=== PATIENT | male | born 1950 | race Caucasian/White ===

== ENCOUNTER 2020-10-24 19:24 | Emergency (ER) | payer MEDICARE, SELFPAY ==
[2020-10-24] VITALS (9 sets, daily range): BP systolic 73–135; BP diastolic 40–63; PULSE 88–108; RESP 24–28; TEMP 37.1; O2SAT 90–98; BMI 31.1
--- NOTE | ~2020-10-24 | CT_ITS ---
EXAMINATION: CT BRAIN AND CT CERVICAL SPINE WITHOUT CONTRAST. CLINICAL INFORMATION: EtOH and fall. COMPARISON: None TECHNIQUE: 5 mm thin axial and reformatted 2 mm thin sagittal and coronal images of brain were obtained without contrast. Subsequently axial 3 mm thin and reformatted 2 mm thin sagittal and coronal images of cervical spine were obtained. DLP 1433. FINDINGS: Brain: There is no acute intra-axial, extra-axial bleed, masses, collection or midline shift. There is no acute infarction in evolution. 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 The lateral ventricles are symmetrical in size but enlarged and so are the cortical sulci. There is atherosclerotic calcification of bilateral vertebral and carotid arteries. Bone windows reveal well-aerated paranasal sinuses. Mild mucoperiosteal thickening left maxillary sinus is noted. There is no calvarial fracture or abnormality. The soft tissues are normal. Cervical spine: There is mild straightening of cervical lordosis. The vertebral heights are normal. There is grade 1 anterolisthesis C2 over C3 and C3 over C5 C4. There is loss of C4-C5, C5-C6 and C6-C7 disc heights with ventral and posterior spondylosis. The craniovertebral junction and the C1-C2 alignment is normal. There is moderate significant right cc 3-4 facet arthropathy. Mild facet arthropathy seen of the rest of the disc levels. No visible acute fracture, dislocation or subluxation seen. The prevertebral and paravertebral soft tissues are normal. The central trachea and the bronchi is widely patent. The lung apices are clear. CT/CT cervical spine wo con IMPRESSION: No acute intracranial process seen. 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 [place]-rump Chronic left maxillary sinus inflammatory changes. Mild straightening of cervical lordosis. No visible acute fracture or dislocation. Mild ventral spondylosis C4-C5, C5-C6 and C6-C7 disc levels. Degenerative disc changes C4-C5 and C5-C6 disc level.
--- NOTE | ~2020-10-24 | CT_ITS ---
EXAMINATION: CT ABDOMEN AND PELVIS WITHOUT CONTRAST CLINICAL INFORMATION: Abdominal distention COMPARISON: None TECHNIQUE: Multidetector volumetric imaging was performed from the superior aspect of the liver through the pubic symphysis. Sagittal and coronal reformatted images were obtained on the technologist's workstation. This CT examination was performed using dose optimization techniques as appropriate, variously including the following: *Automated exposure control *Adjustment of mA and/or kV according to patient size (this includes techniques or standardized protocols for targeted exams where dose is matched to indication/reason for exam; i.e. extremities or head) *Use of iterative reconstruction technique DLP: 699 mGy-cm FINDINGS: LUNG BASES: Minimal bibasilar atelectasis. Coronary artery calcifications are present. LIVER, GALLBLADDER, AND BILIARY TREE: The liver is enlarged measuring 22 cm CC dimension. Low attenuation of the liver with normal contour. No focal hepatic lesion. No biliary ductal dilatation. The gallbladder is unremarkable with no evidence of radiopaque gallstones, gallbladder wall thickening, or obvious pericholecystic inflammatory changes. PANCREAS: Mild pancreatic atrophy with no focal abnormality. SPLEEN: Unremarkable. ADRENAL GLANDS: Unremarkable. KIDNEYS AND URETERS: The left kidney is atrophic. Normal size right kidney. No hydronephrosis. There is a prominent calculus in the renal pelvis. This measures 1.4 x 0.8 cm, 11 cm from the posterior axillary line. This measures 1026 Hounsfield units. Scattered additional calcifications are noted, which appear vascular. Mild stranding of the fat surrounding the right renal pelvis. The ureter is normal in caliber. BLADDER: Unremarkable. GASTROINTESTINAL TRACT: Wall thickening of the lower esophagus. The stomach is unremarkable. The small bowel is normal in caliber. No obstruction. Scattered colonic diverticulosis. Much of the colon is decompressed, but there does appear to be wall thickening involving the right hemicolon. Mild stranding in the fat throughout the mesentery. No free fluid. No free air. ABDOMINAL WALL: Fat-containing right inguinal hernia. LYMPH NODES: Normal. VASCULAR: There is an aortobiiliac stent graft in place. Normal caliber aorta. Moderate atherosclerotic calcification. PELVIC VISCERA: The prostate and seminal vesicles are unremarkable. OSSEOUS STRUCTURES: No acute or suspicious osseous abnormality. Degenerative changes of the spine. Degenerative changes of the hips. CT/CT abdomen pelvis wo con IMPRESSION: Wall thickening of the right hemicolon. This is suggestive of colitis. No bowel obstruction. There is also a lower esophageal wall thickening. Correlate for esophagitis. Hepatomegaly with hepatic steatosis. Although there is no right hydronephrosis, there is a prominent calculus in the renal pelvis with mild adjacent stranding. Cannot exclude infectious process. Atrophic left kidney.
--- NOTE | ~2020-10-24 | XR_ITS ---
EXAMINATION: XR CHEST CLINICAL INFORMATION: Hypotension COMPARISON: None TECHNIQUE: Frontal view of the chest was obtained. FINDINGS: Cardiac leads overlie the chest. The lungs are well expanded. There is no focal consolidation, edema, or effusion. No pneumothorax. The cardiomediastinal silhouette is within normal limits of size with a calcified aorta. No acute osseous abnormality. Degenerative changes are seen at both shoulders with narrowing of the joint space and osteophyte formation. XR/XR chest 1V IMPRESSION: No acute pulmonary finding.
--- NOTE | ~2020-10-24 | CT_ITS ---
EXAMINATION: CT BRAIN AND CT CERVICAL SPINE WITHOUT CONTRAST. CLINICAL INFORMATION: EtOH and fall. COMPARISON: None TECHNIQUE: 5 mm thin axial and reformatted 2 mm thin sagittal and coronal images of brain were obtained without contrast. Subsequently axial 3 mm thin and reformatted 2 mm thin sagittal and coronal images of cervical spine were obtained. DLP 1433. FINDINGS: Brain: There is no acute intra-axial, extra-axial bleed, masses, collection or midline shift. There is no acute infarction in evolution. 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 The lateral ventricles are symmetrical in size but enlarged and so are the cortical sulci. There is atherosclerotic calcification of bilateral vertebral and carotid arteries. Bone windows reveal well-aerated paranasal sinuses. Mild mucoperiosteal thickening left maxillary sinus is noted. There is no calvarial fracture or abnormality. The soft tissues are normal. Cervical spine: There is mild straightening of cervical lordosis. The vertebral heights are normal. There is grade 1 anterolisthesis C2 over C3 and C3 over C5 C4. There is loss of C4-C5, C5-C6 and C6-C7 disc heights with ventral and posterior spondylosis. The craniovertebral junction and the C1-C2 alignment is normal. There is moderate significant right cc 3-4 facet arthropathy. Mild facet arthropathy seen of the rest of the disc levels. No visible acute fracture, dislocation or subluxation seen. The prevertebral and paravertebral soft tissues are normal. The central trachea and the bronchi is widely patent. The lung apices are clear. CT/CT head/brain wo con IMPRESSION: No acute intracranial process seen. 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 [place]-rump Chronic left maxillary sinus inflammatory changes. Mild straightening of cervical lordosis. No visible acute fracture or dislocation. Mild ventral spondylosis C4-C5, C5-C6 and C6-C7 disc levels. Degenerative disc changes C4-C5 and C5-C6 disc level.
--- NOTE | 2020-10-24 19:54 | ED.GENADULT ---
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 Patient was found to be hypotensive for EMS 80s over 50s was given IV fluids and transferred the emergency room. He is alert and oriented does have slight tremors to the hand denies any pain or discomfort. Upon arrival he does have liquid stool that is dark/greenish appearing. Onset (ago): day(s) Radiation: non-radiation Severity: severe Associated symptoms: denies other symptoms Treatments prior to arrival: other (IV fluids by EMS) Related Data Home Medications Medication Instructions Recorded Confirmed allopurinol 1 tab PO DAILY 10/24/20 10/24/20 amlodipine 1 tab PO DAILY 10/24/20 10/24/20 aspirin 81 mg PO DAILY 10/24/20 10/24/20 atorvastatin 1 tab PO DAILY 10/24/20 10/24/20 cyanocobalamin (vitamin B-12) 1,000 mcg PO DAILY 10/24/20 10/24/20 [Vitamin B-12] folic acid 1 mg PO DAILY 10/24/20 10/24/20 magnesium citrate 125 mg PO DAILY 10/24/20 10/24/20 metoprolol succinate 1 tab PO DAILY 10/24/20 10/24/20 Allergies Allergy/AdvReac Type Severity Reaction Status Date / Time No Known Allergies Allergy Verified 10/24/20 19:54 Review of Systems Review of Systems: Yes Unobtainable due to mental condition PMFSH Past Medical History PMFSH Narrative: History reported per he normally goes to [facility] And has never been to this facility before She reports he has a history of abdominal gastric perforation in the past requiring repair Abdominal aortic aneurysm which was repaired Hypertension Hypercholesteremia Gout Left knee replacement Nephrectomy left And his medication list that he has with him he is on metoprolol B12 Ill-appearing on Aspirin Folic acid Atorvastatin Amlodipine Magnesium Social History Social History Alcohol intake: current Alcohol intake frequency: other Alcohol type: hard liquor Patient Tobacco Use Status: Tobacco use Unknown Use of substances other than those prescribed or required for medical reasons: No Advance Directives: No Physical Exam Vital Signs: Vital Signs: Last Vital Signs Temp 100.4 F 10/25/20 01:10 Pulse 91 10/25/20 01:53 Resp 28 H 10/25/20 01:53 BP 153/69 H 10/25/20 01:53 Pulse Ox 94 10/25/20 01:53 Body Mass Index 31.1 Reviewed Const: Other: Slight tremor when he raises his hands General: ill appearing and poor hygiene Nutritional Appearance: obese Orientation/consciousness: patient oriented x3 Limitations: language barrier HENMT: Head: Yes normal to inspection Ears: hearing grossly normal bilaterally Eyes: General: appearance normal, both eyes and all related structures Visual [place]: normal visual dallas by confrontation Neck: Neck: Yes normal visual inspection, No positive Brudzinski's sign, No positive Kernig's sign and No tender Thyroid: Thyroid normal Chest: Other: Surgical pj to the chest Chest palpation & inspection: normal inspection of the chest Resp: Effort & Inspection: normal respiratory effort Auscultation: clear to auscultation bilaterally Cardio: Jugular venous distension: no JVD Rate: Other (AFib) Rhythm: regular rhythm GI: Inspection: Yes distended Palpation (GI): No Rebound tenderness present Percussion: Yes normal to percussion Auscultation: normal bowel sounds : General: Yes no CVA tenderness Back/Spine/Pelvis: Back: no CVA tenderness Skin: Other: Healed abrasion pj on the right forearm General skin exam: no rashes or lesions noted Neuro: General: patient oriented x3 Extrem: General: Yes normal to inspection Course Course Course Narrative: Given 2 mg IV Ativan on arrival for his withdrawal subsequently planned for phenobarb protocol for alcohol withdrawal labs, imaging, Rae catheter for fluid management appears to be very dry clinically. Will monitor closely hypertensive has 2 IV lines and fluids infusing. Reevaluation(s) Reevaluation #1: 1953 In review 70-year-old male with past medical history that is significant hypertension, hypercholesteremia, hypomagnesia, gout, gastric ulcer perforation status post repair, abdominal aortic aneurysm status post repair, left knee replacement who is a lifelong alcoholic has been drinking more heavily according to his over the last several days and stop drinking today which he will occasionally do and has been experiencing withdrawal symptoms of tremors and now having some diarrhea which is usual for him. He typically goes to [facility] and this is 1st time here. He does have some limited barriers his Hayley is at bedside to assist with history. Upon arrival hypertensive appears very dehydrated does have diarrhea. EKG on arrival AFib rate in the 80s. Again history is limited given that he has never been here before. He has IV fluids infusing from EMS he is getting a 2nd line now will give additional IV fluids and workup initiated. Reevaluation #2: BP slightly improved after IV fluids Chest x-ray without acute findings CT of the abdomen: Wall thickening of the right hemicolon. This is suggestive of colitis. No bowel obstruction. There is also a lower esophageal wall thickening. Correlate for esophagitis. Hepatomegaly with hepatic steatosis. Although there is no right hydronephrosis, there is a prominent calculus in the renal pelvis with mild adjacent stranding. Cannot exclude infectious process. Atrophic left kidney. Additional fluids ordered, IV Ativan, Rae catheter for fluid management. Labs still processing. Reevaluation #3: 2134 Starting to result this time CBC essentially no change from previous platelet count previously 78 today's count still pending. Comprehensive metabolic profile along with other electrolytes now resulting Overt electrolyte derangement consistent with alcoholic ketoacidosis Sodium 132, potassium 5, elevated creatinine/BUN with lactic acid of 14.2, magnesium of 1.4, CK of 1008, troponin 98.6 Findings more consistent with alcoholic ketoacidosis and demand. I do not suspect infection to be the cause of the lactic acidosis. I will add on CRP and procalcitonin. Consultations Consultation #1: Had extensive conversation with Hayley at bedside she was a physical therapist at [facility] and states to me that patient went to frequently alcohol withdrawals with similar presentation before. Records requested. States that also recently she was diagnosed of breast cancer she had bilateral mastectomies and has been more depressed and has been drinking more due to this. I did discuss with her advanced directives and close status states that she knows he would not want heroic measures but does not have any directives on record. At this point full code and she will have discussion with her daughter. 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 White declined admission here. Meets ICU level care recommendation for transfer to appropriate center with ICU level care. Also case discussed with the GI doctor son made aware of patient will follow if admitted here aware PPI given. Consultation #3: Page placed to [facility] transfer line for transfer to ICU case discussed with transfer line will call back Additional Consultation(s): Case discussed with transfer line as well as ICU attending [place] [facility] [place] this point would not need ICU level care can be admitted to Internal care and if needed ICU can consult. Aware [facility] have ICU capacity here and hospitalist has declined at this facility will page to hospitalist services 0210 Call back from transfer line case discussed with hospitalist Dr. Mayen Who accepted the patient to the service transfer line will call back with bed assignment in the intermediate care unit. Patient remained stable receiving IV fluids. Plan reviewed agreeable. Medical Decision Making Lab Data Lab results reviewed: Yes I reviewed the patient's lab results. Result diagrams: 10/24/20 21:48 10/25/20 00:20 Labs: Lab Results 10/24/20 10/24/20 10/24/20 Range/Units 20:42 20:42 20:42 WBC 8.5 (4.8-10.8) X10*3/uL RBC 3.21 L (4.60-5.80) X10*6/uL Hgb 11.3 L (14.0-18.0) g/dl Hct 37.3 L (42-52) % MCV 116.2 H (80-98) fL MCH 35.2 H (27.0-33.0) pg MCHC 30.3 L (31.0-36.0) g/dl RDW 14.8 (11.0-16.0) % Plt Count 78 L (160-400) X10*3/uL MPV 10.1 (9.4-12.4) fL Immature Gran % (Auto) 0.6 H (0.0-0.4) % Neut % (Auto) 94.7 H (45-73) % Lymph % (Auto) 2.7 L (20-40) % [place] % (Auto) 1.8 L (2-11) % Eos % (Auto) 0.1 (0-4) % Baso % (Auto) 0.1 (0-2) % Lymph # (Auto) 0.2 L (1.2-4.9) X10*3/uL [place] # (Auto) 0.2 (0.1-1.2) X10*3/uL Eos # (Auto) 0.0 (0.0-0.4) X10*3/uL Baso # (Auto) 0.0 (0.0-0.2) X10*3/uL Abs Immat Gran (auto) 0.05 H (0.00-0.03) X10*3/uL Absolute Neuts (auto) 8.0 (2.0-8.3) X10*3/uL Absolute Nucleated RBC 0.110 H (0.0-0.012) X10*3/uL Nucleated RBC % (auto) 1.3 H (0.0-0.2) /100WBC Smear Tech's Comments VERIFIED PT 12.9 (10.8-13.0) SEC INR 1.1 (0.9-1.1) APTT 28.8 (24.1-38.0) SEC VBG pH (7.32-7.43) VBG pCO2 mmHg VBG pO2 mmHg VBG HCO3 (22-26) mmol/L VBG O2 Saturation % VBG Base Excess mmol/L Sodium 132 L (135-145) mmol/L Potassium 5.0 (3.3-5.1) mmol/L Chloride 93 L (96-108) mmol/L Carbon Dioxide 9 L* (22-29) mmol/L Anion Gap 35 H (12-20) BUN 24 H (9-16) mg/dL Creatinine 3.10 H (0.5-1.4) mg/dL Estim Creat Clear Calc 25.7 Estimated GFR 20 Random Glucose 120 H (60-115) mg/dL Lactic Acid (0.5-2.0) mmol/L Lactic Acid Fup @ 2Hr (0.5-2.0) mmol/L Calcium 7.2 L (8.4-10.2) mg/dL Magnesium (1.6-2.6) mg/dL Total Bilirubin 5.1 H (0.0-1.0) mg/dL AST 799 H (5-37) U/L ALT 156 H (0-40) U/L Alkaline Phosphatase 211 H (39-117) U/L Total Creatine Kinase (38-174) U/L Troponin I High Sens (<3.5-35.0) ng/L C-Reactive Protein 3.90 H (< or = 0.50) mg/dL Total Protein 5.5 L (6.5-8.0) g/dL Albumin 3.5 (3.5-5.0) g/dL Lipase (8-78) U/L Procalcitonin ng/mL Urine Color Urine Appearance Urine pH (5.0-8.0) Ur Specific Cuthbert (1.005-1.025) Urine Protein (NEG-TRACE) MG/DL Urine Glucose (UA) (NEG) MG/DL Urine Ketones (NEG) MG/DL Urine Blood (NEG) Urine Nitrite (NEG) Ur Leukocyte Esterase (NEG) Urine RBC (0) /HPF Urine WBC (0-4) /HPF Ur Squamous Epith Cells /LPF Ur Renal Epithelial Cell /LPF Calcium Oxalate Crystal /LPF Amorphous Sediment /LPF Urine Bacteria /LPF Hyaline Casts /LPF Granular Casts /LPF Stool Occult Blood (NEGATIVE) Urine Opiates Screen (Not Detect) Ur Barbiturates Screen (Not Detect) Ur Phencyclidine Scrn (Not Detect) Ur Amphetamines Screen (Not Detect) U Benzodiazepines Scrn (Not Detect) Urine Cocaine Screen (Not Detect) U Marijuana (THC) Screen (Not Detect) Ethyl Alcohol mg/dL Coronavirus (PCR) (Negative) Influenza Type A (PCR) (Negative) Influenza Type B (PCR) (Negative) RSV RNA Qual (PCR) (Negative) Blood Type Antibody Screen 10/24/20 10/24/20 10/24/20 Range/Units 20:42 20:42 20:42 WBC (4.8-10.8) X10*3/uL RBC (4.60-5.80) X10*6/uL Hgb (14.0-18.0) g/dl Hct (42-52) % MCV (80-98) fL MCH (27.0-33.0) pg MCHC (31.0-36.0) g/dl RDW (11.0-16.0) % Plt Count (160-400) X10*3/uL MPV (9.4-12.4) fL Immature Gran % (Auto) (0.0-0.4) % Neut % (Auto) (45-73) % Lymph % (Auto) (20-40) % [place] % (Auto) (2-11) % Eos % (Auto) (0-4) % Baso % (Auto) (0-2) % Lymph # (Auto) (1.2-4.9) X10*3/uL [place] # (Auto) (0.1-1.2) X10*3/uL Eos # (Auto) (0.0-0.4) X10*3/uL Baso # (Auto) (0.0-0.2) X10*3/uL Abs Immat Gran (auto) (0.00-0.03) X10*3/uL Absolute Neuts (auto) (2.0-8.3) X10*3/uL Absolute Nucleated RBC (0.0-0.012) X10*3/uL Nucleated RBC % (auto) (0.0-0.2) /100WBC Smear Tech's Comments PT (10.8-13.0) SEC INR (0.9-1.1) APTT (24.1-38.0) SEC VBG pH (7.32-7.43) VBG pCO2 mmHg VBG pO2 mmHg VBG HCO3 (22-26) mmol/L VBG O2 Saturation % VBG Base Excess mmol/L Sodium (135-145) mmol/L Potassium (3.3-5.1) mmol/L Chloride (96-108) mmol/L Carbon Dioxide (22-29) mmol/L Anion Gap (12-20) BUN (9-16) mg/dL Creatinine (0.5-1.4) mg/dL Estim Creat Clear Calc Estimated GFR Random Glucose (60-115) mg/dL Lactic Acid 14.2 H* (0.5-2.0) mmol/L Lactic Acid Fup @ 2Hr (0.5-2.0) mmol/L Calcium (8.4-10.2) mg/dL Magnesium 1.4 L* (1.6-2.6) mg/dL Total Bilirubin (0.0-1.0) mg/dL AST (5-37) U/L ALT (0-40) U/L Alkaline Phosphatase (39-117) U/L Total Creatine Kinase 1008 H (38-174) U/L Troponin I High Sens 98.6 H* (<3.5-35.0) ng/L C-Reactive Protein (< or = 0.50) mg/dL Total Protein (6.5-8.0) g/dL Albumin (3.5-5.0) g/dL Lipase (8-78) U/L Procalcitonin ng/mL Urine Color Urine Appearance Urine pH (5.0-8.0) Ur Specific C[place]bert (1.005-1.025) Urine Protein (NEG-TRACE) MG/DL Urine Glucose (UA) (NEG) MG/DL Urine Ketones (NEG) MG/DL Urine Blood (NEG) Urine Nitrite (NEG) Ur Leukocyte Esterase (NEG) Urine RBC (0) /HPF Urine WBC (0-4) /HPF Ur Squamous Epith Cells /LPF Ur Renal Epithelial Cell /LPF Calcium Oxalate Crystal /LPF Amorphous Sediment /LPF Urine Bacteria /LPF Hyaline Casts /LPF Granular Casts /LPF Stool Occult Blood (NEGATIVE) Urine Opiates Screen (Not Detect) Ur Barbiturates Screen (Not Detect) Ur Phencyclidine Scrn (Not Detect) Ur Amphetamines Screen (Not Detect) U Benzodiazepines Scrn (Not Detect) Urine Cocaine Screen (Not Detect) U Marijuana (THC) Screen (Not Detect) Ethyl Alcohol mg/dL Coronavirus (PCR) (Negative) Influenza Type A (PCR) (Negative) Influenza Type B (PCR) (Negative) RSV RNA Qual (PCR) (Negative) Blood Type Antibody Screen 10/24/20 10/24/20 10/24/20 Range/Units 20:42 20:42 20:42 WBC (4.8-10.8) X10*3/uL RBC (4.60-5.80) X10*6/uL Hgb (14.0-18.0) g/dl Hct (42-52) % MCV (80-98) fL MCH (27.0-33.0) pg MCHC (31.0-36.0) g/dl RDW (11.0-16.0) % Plt Count (160-400) X10*3/uL MPV (9.4-12.4) fL Immature Gran % (Auto) (0.0-0.4) % Neut % (Auto) (45-73) % Lymph % (Auto) (20-40) % [place] % (Auto) (2-11) % Eos % (Auto) (0-4) % Baso % (Auto) (0-2) % Lymph # (Auto) (1.2-4.9) X10*3/uL [place] # (Auto) (0.1-1.2) X10*3/uL Eos # (Auto) (0.0-0.4) X10*3/uL Baso # (Auto) (0.0-0.2) X10*3/uL Abs Immat Gran (auto) (0.00-0.03) X10*3/uL Absolute Neuts (auto) (2.0-8.3) X10*3/uL Absolute Nucleated RBC (0.0-0.012) X10*3/uL Nucleated RBC % (auto) (0.0-0.2) /100WBC Smear Tech's Comments PT (10.8-13.0) SEC INR (0.9-1.1) APTT (24.1-38.0) SEC VBG pH (7.32-7.43) VBG pCO2 mmHg VBG pO2 mmHg VBG HCO3 (22-26) mmol/L VBG O2 Saturation % VBG Base Excess mmol/L Sodium (135-145) mmol/L Potassium (3.3-5.1) mmol/L Chloride (96-108) mmol/L Carbon Dioxide (22-29) mmol/L Anion Gap (12-20) BUN (9-16) mg/dL Creatinine (0.5-1.4) mg/dL Estim Creat Clear Calc Estimated GFR Random Glucose (60-115) mg/dL Lactic Acid (0.5-2.0) mmol/L Lactic Acid Fup @ 2Hr (0.5-2.0) mmol/L Calcium (8.4-10.2) mg/dL Magnesium (1.6-2.6) mg/dL Total Bilirubin (0.0-1.0) mg/dL AST (5-37) U/L ALT (0-40) U/L Alkaline Phosphatase (39-117) U/L Total Creatine Kinase (38-174) U/L Troponin I High Sens (<3.5-35.0) ng/L C-Reactive Protein (< or = 0.50) mg/dL Total Protein (6.5-8.0) g/dL Albumin (3.5-5.0) g/dL Lipase (8-78) U/L Procalcitonin 1.03 ng/mL Urine Color Urine Appearance Urine pH (5.0-8.0) Ur Specific [place] (1.005-1.025) Urine Protein (NEG-TRACE) MG/DL Urine Glucose (UA) (NEG) MG/DL Urine Ketones (NEG) MG/DL Urine Blood (NEG) Urine Nitrite (NEG) Ur Leukocyte Esterase (NEG) Urine RBC (0) /HPF Urine WBC (0-4) /HPF Ur Squamous Epith Cells /LPF Ur Renal Epithelial Cell /LPF Calcium Oxalate Crystal /LPF Amorphous Sediment /LPF Urine Bacteria /LPF Hyaline Casts /LPF Granular Casts /LPF Stool Occult Blood (NEGATIVE) Urine Opiates Screen (Not Detect) Ur Barbiturates Screen (Not Detect) Ur Phencyclidine Scrn (Not Detect) Ur Amphetamines Screen (Not Detect) U Benzodiazepines Scrn (Not Detect) Urine Cocaine Screen (Not Detect) U Marijuana (THC) Screen (Not Detect) Ethyl Alcohol < 10 mg/dL Coronavirus (PCR) NEGATIVE (Negative) Influenza Type A (PCR) NEGATIVE (Negative) Influenza Type B (PCR) NEGATIVE (Negative) RSV RNA Qual (PCR) NEGATIVE (Negative) Blood Type Antibody Screen 10/24/20 10/24/20 10/24/20 Range/Units 20:46 20:46 21:48 WBC 9.5 (4.8-10.8) X10*3/uL RBC 3.17 L (4.60-5.80) X10*6/uL Hgb 11.0 L (14.0-18.0) g/dl Hct 36.1 L (42-52) % MCV 113.9 H (80-98) fL MCH 34.7 H (27.0-33.0) pg MCHC 30.5 L (31.0-36.0) g/dl RDW 14.8 (11.0-16.0) % Plt Count 57 L D (160-400) X10*3/uL MPV 9.7 (9.4-12.4) fL Immature Gran % (Auto) 0.8 H (0.0-0.4) % Neut % (Auto) 91.7 H (45-73) % Lymph % (Auto) 3.8 L (20-40) % [place] % (Auto) 3.6 (2-11) % Eos % (Auto) 0.0 (0-4) % Baso % (Auto) 0.1 (0-2) % Lymph # (Auto) 0.4 L (1.2-4.9) X10*3/uL [place] # (Auto) 0.3 (0.1-1.2) X10*3/uL Eos # (Auto) 0.0 (0.0-0.4) X10*3/uL Baso # (Auto) 0.0 (0.0-0.2) X10*3/uL Abs Immat Gran (auto) 0.08 H (0.00-0.03) X10*3/uL Absolute Neuts (auto) 8.7 H (2.0-8.3) X10*3/uL Absolute Nucleated RBC 0.110 H (0.0-0.012) X10*3/uL Nucleated RBC % (auto) 1.2 H (0.0-0.2) /100WBC Smear Tech's Comments PT (10.8-13.0) SEC INR (0.9-1.1) APTT (24.1-38.0) SEC VBG pH (7.32-7.43) VBG pCO2 mmHg VBG pO2 mmHg VBG HCO3 (22-26) mmol/L VBG O2 Saturation % VBG Base Excess mmol/L Sodium (135-145) mmol/L Potassium (3.3-5.1) mmol/L Chloride (96-108) mmol/L Carbon Dioxide (22-29) mmol/L Anion Gap (12-20) BUN (9-16) mg/dL Creatinine (0.5-1.4) mg/dL Estim Creat Clear Calc Estimated GFR Random Glucose (60-115) mg/dL Lactic Acid (0.5-2.0) mmol/L Lactic Acid Fup @ 2Hr (0.5-2.0) mmol/L Calcium (8.4-10.2) mg/dL Magnesium (1.6-2.6) mg/dL Total Bilirubin (0.0-1.0) mg/dL AST (5-37) U/L ALT (0-40) U/L Alkaline Phosphatase (39-117) U/L Total Creatine Kinase (38-174) U/L Troponin I High Sens (<3.5-35.0) ng/L C-Reactive Protein (< or = 0.50) mg/dL Total Protein (6.5-8.0) g/dL Albumin (3.5-5.0) g/dL Lipase (8-78) U/L Procalcitonin ng/mL Urine Color Urine Appearance Urine pH (5.0-8.0) Ur Specific C[place] (1.005-1.025) Urine Protein (NEG-TRACE) MG/DL Urine Glucose (UA) (NEG) MG/DL Urine Ketones (NEG) MG/DL Urine Blood (NEG) Urine Nitrite (NEG) Ur Leukocyte Esterase (NEG) Urine RBC (0) /HPF Urine WBC (0-4) /HPF Ur Squamous Epith Cells /LPF Ur Renal Epithelial Cell /LPF Calcium Oxalate Crystal /LPF Amorphous Sediment /LPF Urine Bacteria /LPF Hyaline Casts /LPF Granular Casts /LPF Stool Occult Blood POSITIVE (NEGATIVE) Urine Opiates Screen (Not Detect) Ur Barbiturates Screen (Not Detect) Ur Phencyclidine Scrn (Not Detect) Ur Amphetamines Screen (Not Detect) U Benzodiazepines Scrn (Not Detect) Urine Cocaine Screen (Not Detect) U Marijuana (THC) Screen (Not Detect) Ethyl Alcohol mg/dL Coronavirus (PCR) (Negative) Influenza Type A (PCR) (Negative) Influenza Type B (PCR) (Negative) RSV RNA Qual (PCR) (Negative) Blood Type B Positive Antibody Screen NEGATIVE 10/24/20 10/25/20 10/25/20 Range/Units 22:31 00:20 00:20 WBC (4.8-10.8) X10*3/uL RBC (4.60-5.80) X10*6/uL Hgb (14.0-18.0) g/dl Hct (42-52) % MCV (80-98) fL MCH (27.0-33.0) pg MCHC (31.0-36.0) g/dl RDW (11.0-16.0) % Plt Count (160-400) X10*3/uL MPV (9.4-12.4) fL Immature Gran % (Auto) (0.0-0.4) % Neut % (Auto) (45-73) % Lymph % (Auto) (20-40) % [place] % (Auto) (2-11) % Eos % (Auto) (0-4) % Baso % (Auto) (0-2) % Lymph # (Auto) (1.2-4.9) X10*3/uL [place] # (Auto) (0.1-1.2) X10*3/uL Eos # (Auto) (0.0-0.4) X10*3/uL Baso # (Auto) (0.0-0.2) X10*3/uL Abs Immat Gran (auto) (0.00-0.03) X10*3/uL Absolute Neuts (auto) (2.0-8.3) X10*3/uL Absolute Nucleated RBC (0.0-0.012) X10*3/uL Nucleated RBC % (auto) (0.0-0.2) /100WBC Smear Tech's Comments PT (10.8-13.0) SEC INR (0.9-1.1) APTT (24.1-38.0) SEC VBG pH 7.29 L (7.32-7.43) VBG pCO2 26 mmHg VBG pO2 95 mmHg VBG HCO3 12 L (22-26) mmol/L VBG O2 Saturation 98.0 % VBG Base Excess -12.1 mmol/L Sodium (135-145) mmol/L Potassium (3.3-5.1) mmol/L Chloride (96-108) mmol/L Carbon Dioxide (22-29) mmol/L Anion Gap (12-20) BUN (9-16) mg/dL Creatinine (0.5-1.4) mg/dL Estim Creat Clear Calc Estimated GFR Random Glucose (60-115) mg/dL Lactic Acid (0.5-2.0) mmol/L Lactic Acid Fup @ 2Hr 5.7 H* (0.5-2.0) mmol/L Calcium (8.4-10.2) mg/dL Magnesium (1.6-2.6) mg/dL Total Bilirubin (0.0-1.0) mg/dL AST (5-37) U/L ALT (0-40) U/L Alkaline Phosphatase (39-117) U/L Total Creatine Kinase (38-174) U/L Troponin I High Sens (<3.5-35.0) ng/L C-Reactive Protein (< or = 0.50) mg/dL Total Protein (6.5-8.0) g/dL Albumin (3.5-5.0) g/dL Lipase (8-78) U/L Procalcitonin ng/mL Urine Color DARK YELLOW Urine Appearance CLOUDY Urine pH 5.5 (5.0-8.0) Ur Specific Cuthbert >= 1.030 H (1.005-1.025) Urine Protein 2+ H (NEG-TRACE) MG/DL Urine Glucose (UA) NEG (NEG) MG/DL Urine Ketones 5 (NEG) MG/DL Urine Blood 3+ H (NEG) Urine Nitrite NEG (NEG) Ur Leukocyte Esterase NEG (NEG) Urine RBC 1-4 (0) /HPF Urine WBC 0-2 (0-4) /HPF Ur Squamous Epith Cells 2+ /LPF Ur Renal Epithelial Cell 1+ /LPF Calcium Oxalate Crystal 1+ /LPF Amorphous Sediment 2+ /LPF Urine Bacteria NONE /LPF Hyaline Casts 5-9 /LPF Granular Casts 5-9 /LPF Stool Occult Blood (NEGATIVE) Urine Opiates Screen (Not Detect) Ur Barbiturates Screen (Not Detect) Ur Phencyclidine Scrn (Not Detect) Ur Amphetamines Screen (Not Detect) U Benzodiazepines Scrn (Not Detect) Urine Cocaine Screen (Not Detect) U Marijuana (THC) Screen (Not Detect) Ethyl Alcohol mg/dL Coronavirus (PCR) (Negative) Influenza Type A (PCR) (Negative) Influenza Type B (PCR) (Negative) RSV RNA Qual (PCR) (Negative) Blood Type Antibody Screen 10/25/20 10/25/20 10/25/20 Range/Units 00:20 00:20 00:20 WBC (4.8-10.8) X10*3/uL RBC (4.60-5.80) X10*6/uL Hgb (14.0-18.0) g/dl Hct (42-52) % MCV (80-98) fL MCH (27.0-33.0) pg MCHC (31.0-36.0) g/dl RDW (11.0-16.0) % Plt Count (160-400) X10*3/uL MPV (9.4-12.4) fL Immature Gran % (Auto) (0.0-0.4) % Neut % (Auto) (45-73) % Lymph % (Auto) (20-40) % [place] % (Auto) (2-11) % Eos % (Auto) (0-4) % Baso % (Auto) (0-2) % Lymph # (Auto) (1.2-4.9) X10*3/uL [place] # (Auto) (0.1-1.2) X10*3/uL Eos # (Auto) (0.0-0.4) X10*3/uL Baso # (Auto) (0.0-0.2) X10*3/uL Abs Immat Gran (auto) (0.00-0.03) X10*3/uL Absolute Neuts (auto) (2.0-8.3) X10*3/uL Absolute Nucleated RBC (0.0-0.012) X10*3/uL Nucleated RBC % (auto) (0.0-0.2) /100WBC Smear Tech's Comments PT (10.8-13.0) SEC INR (0.9-1.1) APTT (24.1-38.0) SEC VBG pH (7.32-7.43) VBG pCO2 mmHg VBG pO2 mmHg VBG HCO3 (22-26) mmol/L VBG O2 Saturation % VBG Base Excess mmol/L Sodium 130 L (135-145) mmol/L Potassium 5.2 H (3.3-5.1) mmol/L Chloride 98 (96-108) mmol/L Carbon Dioxide 16 L (22-29) mmol/L Anion Gap 21 H (12-20) BUN 26 H (9-16) mg/dL Creatinine 2.92 H (0.5-1.4) mg/dL Estim Creat Clear Calc 27.3 Estimated GFR 21 Random Glucose 156 H (60-115) mg/dL Lactic Acid (0.5-2.0) mmol/L Lactic Acid Fup @ 2Hr (0.5-2.0) mmol/L Calcium 6.6 L D (8.4-10.2) mg/dL Magnesium (1.6-2.6) mg/dL Total Bilirubin 4.8 H (0.0-1.0) mg/dL AST 644 H (5-37) U/L ALT 141 H (0-40) U/L Alkaline Phosphatase 175 H (39-117) U/L Total Creatine Kinase (38-174) U/L Troponin I High Sens 121.6 H* (<3.5-35.0) ng/L C-Reactive Protein (< or = 0.50) mg/dL Total Protein 5.0 L (6.5-8.0) g/dL Albumin 3.2 L (3.5-5.0) g/dL Lipase 420 H (8-78) U/L Procalcitonin ng/mL Urine Color Urine Appearance Urine pH (5.0-8.0) Ur Specific [place] (1.005-1.025) Urine Protein (NEG-TRACE) MG/DL Urine Glucose (UA) (NEG) MG/DL Urine Ketones (NEG) MG/DL Urine Blood (NEG) Urine Nitrite (NEG) Ur Leukocyte Esterase (NEG) Urine RBC (0) /HPF Urine WBC (0-4) /HPF Ur Squamous Epith Cells /LPF Ur Renal Epithelial Cell /LPF Calcium Oxalate Crystal /LPF Amorphous Sediment /LPF Urine Bacteria /LPF Hyaline Casts /LPF Granular Casts /LPF Stool Occult Blood (NEGATIVE) Urine Opiates Screen Not Detected (Not Detect) Ur Barbiturates Screen Not Detected (Not Detect) Ur Phencyclidine Scrn Not Detected (Not Detect) Ur Amphetamines Screen Not Detected (Not Detect) U Benzodiazepines Scrn Not Detected (Not Detect) Urine Cocaine Screen Not Detected (Not Detect) U Marijuana (THC) Screen Not Detected (Not Detect) Ethyl Alcohol mg/dL Coronavirus (PCR) (Negative) Influenza Type A (PCR) (Negative) Influenza Type B (PCR) (Negative) RSV RNA Qual (PCR) (Negative) Blood Type Antibody Screen Imaging Data Head/cervical spine CT: Radiologist's impression: [address] [id number] Scan ReportSigned Patient: Walker WheelerMR#: [id number]: 1950Acct:[id number]/Sex: 70 / MADM Date: 10/24/20Loc: HO.EDAttending Dr: Ordering Physician: Choco Boles NP Date of Service: 10/24/20 Procedure(s): CT head/brain wo con Accession Number(s): [id number] cc: Choco Boles [employer] COMM[employer]ICATIONS INSTRUCTOR~ EXAMINATION: CT BRAIN AND CT CERVICAL SPINE WITHOUT CONTRAST. CLINICAL INFORMATION: EtOH and fall. COMPARISON: None TECHNIQUE: 5 mm thin axial and reformatted 2 mm thin sagittal and coronal images of brain were obtained without contrast. Subsequently axial 3 mm thin and reformatted 2 mm thin sagittal and coronal images of cervical spine were obtained. DLP 1433. FINDINGS: Brain: There is no acute intra-axial, extra-axial bleed, masses, collection or midline shift. There is no acute infarction in evolution. 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 The lateral ventricles are symmetrical in size but enlarged and so are the cortical sulci. There is atherosclerotic calcification of bilateral vertebral and carotid arteries. Bone windows reveal well-aerated paranasal sinuses. Mild mucoperiosteal thickening left maxillary sinus is noted. There is no calvarial fracture or abnormality. The soft tissues are normal. Cervical spine: There is mild straightening of cervical lordosis. The vertebral heights are normal. There is grade 1 anterolisthesis C2 over C3 and C3 over C5 C4. There is loss of C4-C5, C5-C6 and C6-C7 disc heights with ventral and posterior spondylosis. The craniovertebral junction and the C1-C2 alignment is normal. There is moderate significant right cc 3-4 facet arthropathy. Mild facet arthropathy seen of the rest of the disc levels. No visible acute fracture, dislocation or subluxation seen. The prevertebral and paravertebral soft tissues are normal. The central trachea and the bronchi is widely patent. The lung apices are clear. CT/CT head/brain wo con IMPRESSION: No acute intracranial process seen. 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 [place]ump Chronic left maxillary sinus inflammatory changes. Mild straightening of cervical lordosis. No visible acute fracture or dislocation. Mild ventral spondylosis C4-C5, C5-C6 and C6-C7 disc levels. Degenerative disc changes C4-C5 and C5-C6 disc level. Dictated By:FRANCOIS WALTERS MDSigned By:<Electronically signed by FRANCOIS WALTERS MD in [place]>10/24/202152 DD/ 05TD/TT: Road Passenger Firer: TROY Abdominal/pelvis CT: Radiologist's impression: [address] [id number] Scan ReportSigned Patient: Walker WheelerMR#: [id number]: 1950Acct:[id number]/Sex: 70 / MADM Date: 10/24/20Loc: MEGAN.EDAttending Dr: Ordering Physician: Choco Boles NP Date of Service: 10/24/20 Procedure(s): CT abdomen pelvis wo con Accession Number(s): [id number] cc: Choco Boles NP~ EXAMINATION: CT ABDOMEN AND PELVIS WITHOUT CONTRAST CLINICAL INFORMATION: Abdominal distention COMPARISON: None TECHNIQUE: Multidetector volumetric imaging was performed from the superior aspect of the liver through the pubic symphysis. Sagittal and coronal reformatted images were obtained on the technologist's workstation. This CT examination was performed using dose optimization techniques as appropriate, variously including the following: *Automated exposure control *Adjustment of mA and/or kV according to patient size (this includes techniques or standardized protocols for targeted exams where dose is matched to indication/reason for exam; i.e. extremities or head) *Use of iterative reconstruction technique DLP: 699 mGy-cm FINDINGS: LUNG BASES: Minimal bibasilar atelectasis. Coronary artery calcifications are present. LIVER, GALLBLADDER, AND BILIARY TREE: The liver is enlarged measuring 22 cm CC dimension. Low attenuation of the liver with normal contour. No focal hepatic lesion. No biliary ductal dilatation. The gallbladder is unremarkable with no evidence of radiopaque gallstones, gallbladder wall thickening, or obvious pericholecystic inflammatory changes. PANCREAS: Mild pancreatic atrophy with no focal abnormality. SPLEEN: Unremarkable. ADRENAL GLANDS: Unremarkable. KIDNEYS AND URETERS: The left kidney is atrophic. Normal size right kidney. No hydronephrosis. There is a prominent calculus in the renal pelvis. This measures 1.4 x 0.8 cm, 11 cm from the posterior axillary line. This measures 1026 Hounsfield units. Scattered additional calcifications are noted, which appear vascular. Mild stranding of the fat surrounding the right renal pelvis. The ureter is normal in caliber. BLADDER: Unremarkable. GASTROINTESTINAL TRACT: Wall thickening of the lower esophagus. The stomach is unremarkable. The small bowel is normal in caliber. No obstruction. Scattered colonic diverticulosis. Much of the colon is decompressed, but there does appear to be wall thickening involving the right hemicolon. Mild stranding in the fat throughout the mesentery. No free fluid. No free air. ABDOMINAL WALL: Fat-containing right inguinal hernia. LYMPH NODES: Normal. VASCULAR: There is an aortobiiliac stent graft in place. Normal caliber aorta. Moderate atherosclerotic calcification. PELVIC VISCERA: The prostate and seminal vesicles are unremarkable. OSSEOUS STRUCTURES: No acute or suspicious osseous abnormality. Degenerative changes of the spine. Degenerative changes of the hips. CT/CT abdomen pelvis wo con IMPRESSION: Wall thickening of the right hemicolon. This is suggestive of colitis. No bowel obstruction. There is also a lower esophageal wall thickening. Correlate for esophagitis. Hepatomegaly with hepatic steatosis. Although there is no right hydronephrosis, there is a prominent calculus in the renal pelvis with mild adjacent stranding. Cannot exclude infectious process. Atrophic left kidney. Dictated By:Roosevelt Rodriguez MDSigned By:<Electronically signed by Roosevelt Rodriguez MD in OV>10/24/202041 DD/ 58TD/TT: Road Passenger Firer: MARVIN Chest x-ray: Radiologist's impression: [address] [id number] ReportSigned Patient: Walker WheelerMR#: [id number]: 1950Acct:[id number]/Sex: 70 / MADM Date: 10/24/20Loc: MEGAN.EDAttending Dr: Ordering Physician: Choco Boles NP Date of Service: 10/24/20 Procedure(s): XR chest 1V Accession Number(s): [id number] cc: Choco Boles M[employer] COMM[employer]ICATIONS INSTRUCTOR~ EXAMINATION: XR CHEST CLINICAL INFORMATION: Hypotension COMPARISON: None TECHNIQUE: Frontal view of the chest was obtained. FINDINGS: Cardiac leads overlie the chest. The lungs are well expanded. There is no focal consolidation, edema, or effusion. No pneumothorax. The cardiomediastinal silhouette is within normal limits of size with a calcified aorta. No acute osseous abnormality. Degenerative changes are seen at both shoulders with narrowing of the joint space and osteophyte formation. XR/XR chest 1V IMPRESSION: No acute pulmonary finding. Dictated By:Roosevelt Rodriguez MDSigned By:<Electronically signed by Roosevelt Rodriguez MD in OV>10/24/202042 DD/ 58TD/TT: Road Passenger Firer: MARVIN Critical Care Time Critical Care Time Critical Care Time: Yes Total Critical Care Time: 95 Attestation: Alcohol withdrawal, electrolyte derangement, hypotensive requiring fluid resuscitation, multiple re-evaluation and consultation Discharge Plan Discharge Clinical Impression: Hypomagnesemia, Alcoholic ketoacidosis, Transaminitis, Acute GI bleeding, Electrolyte abnormality, Atrial fibrillation, Lactic acidosis Patient Disposition: [facility] Transfer Details: Patient transferred to [facility] intermediate care. Prescriptions: No Action atorvastatin 80 mg tablet 1 tab PO DAILY RF: 0 metoprolol succinate 100 mg tablet extended release 24 hr 1 tab PO DAILY RF: 0 cyanocobalamin (vitamin B-12) [Vitamin B-12] 1,000 mcg Tablet 1,000 mcg PO DAILY RF: 0 amlodipine 5 mg tablet 1 tab PO DAILY RF: 0 allopurinol 100 mg tablet 1 tab PO DAILY RF: 0 aspirin 81 mg Tablet,Delayed Release (Dr/Ec) 81 mg PO DAILY RF: 0 folic acid 1 mg Tablet 1 mg PO DAILY RF: 0 magnesium citrate 125 mg Capsule 125 mg PO DAILY RF: 0
--- NOTE | 2020-10-24 19:59 | ECG_ITS ---
Test Reason : A-FIB/HYPOTENTION Blood Pressure : / mmHG Vent. Rate : 088 BPM Atrial Rate : 110 BPM P-R Int : 000 ms QRS Dur : 090 ms QT Int : 388 ms P-R-T Axes : 000 070 065 degrees QTc Int : 469 ms Atrial fibrillation with RVR Abnormal ECG No previous ECGs available Referred By: Choco Boles Electronically Signed By:Sorin Carranza
--- NOTE | 2020-10-24 20:03 | PC.NURSE ---
ON arrival pt bp low 88/57 ns infusing from [facility] was placed on a pressure bag, pt placed in trandelenburg. bp improving, pt placed on monitor afib, ekg done. providers made aware of pt in withdrawl incont stool and low bp. no medications have been taken today. pt mouth is shaky with thermonitor in his mouth unable to place under pt tongue. pt taken to ct. and 2nd bag of ns infusing before pt was taken to ct.
[2020-10-24 20:51] LABS: Basophils Percent Auto 0.1 % (0-2); Eosinophils Percent Auto 0.1 % (0-4); Hematocrit 37.3 % (42-52); Hemoglobin 11.3 g/dl (14.0-18.0); Imm Gran Abs Auto 0.05 X10*3/uL (0.00-0.03); Imm Gran Pct Auto 0.6 % (0.0-0.4); Lymphocytes Absolute Auto 0.2 X10*3/uL (1.2-4.9); Lymphocytes Percent Auto 2.7 % (20-40); MANUAL DIFF FLAG SCAN; Mean Corpuscular HGB Conc 30.3 g/dl (31.0-36.0); Mean Corpuscular Hemoglobin 35.2 pg (27.0-33.0); Mean Platelet Volume 10.1 fL (9.4-12.4); Monocytes Absolute Auto 0.2 X10*3/uL (0.1-1.2); Monocytes Percent Auto 1.8 % (2-11); Neutrophils Percent Auto 94.7 % (45-73); Red Blood Count 3.21 X10*6/uL (4.60-5.80); Red Cell Distribution Width 14.8 % (11.0-16.0); SCAN SMEAR FLAG 1; White Blood Count 8.5 X10*3/uL (4.8-10.8)
[2020-10-24] MEDS: 0.9 % Sodium Chloride 1,000 ML 999 ML IV ×4 (20:51→22:35)
--- NOTE | 2020-10-24 20:51 | PC.NURSE ---
pt po medications on hold till ct results are back. pt has black tarry stool, diarrhea.
[2020-10-24 20:55] LABS: Mean Corpuscular Volume 116.2 fL (80-98); NRBC Pct Auto 1.3 /100WBC (0.0-0.2)
[2020-10-24 20:57] LABS: INTERNATIONAL NORM RATIO 1.1 (0.9-1.1); Prothrombin Time 12.9 SEC (10.8-13.0)
[2020-10-24 21:00] LABS: Partial Thromboplastin Time 28.8 SEC (24.1-38.0)
--- NOTE | 2020-10-24 21:00 | PC.NURSE ---
pt is at the bedside, states that on september 06 the pt fell down the stairs and pt has had multiple falls since then a long with the most current fall last night in the bed room, pt states he fell forward no loc. provider made aware and further ct to be ordered.
[2020-10-24 21:07] LABS: OBS Int Ctl Valid YES; OBS1 POSITIVE (NEGATIVE)
[2020-10-24 21:10] LABS: Platelet Count 78 X10*3/uL (160-400); SLIDE REVIEW VERIFIED
[2020-10-24 21:16] LABS: Ethanol < 10 mg/dL
[2020-10-24 21:25] LABS: Alanine Aminotransferase 156 U/L (0-40); Albumin Level 3.5 g/dL (3.5-5.0); Alkaline Phosphatase 211 U/L (39-117); Aspartate Amino Transferase 799 U/L (5-37); Bilirubin Total 5.1 mg/dL (0.0-1.0); Blood Urea Nitrogen 24 mg/dL (9-16); Creatinine Clr Calc Pharmacy 25.7; Estimated Glomerular Filt Rate 20; Glucose Random 120 mg/dL (60-115); Total Protein 5.5 g/dL (6.5-8.0)
[2020-10-24 21:40] LABS: Troponin-I High Sensitivity 98.6 ng/L (<3.5-35.0)
[2020-10-24 21:42] LABS: Anion Gap 35 (12-20); Calcium 7.2 mg/dL (8.4-10.2); Carbon Dioxide 9 mmol/L (22-29); Chloride 93 mmol/L (96-108); Lactic Acid 14.2 mmol/L (0.5-2.0); Sodium 132 mmol/L (135-145)
[2020-10-24 21:43] LABS: Magnesium 1.4 mg/dL (1.6-2.6)
[2020-10-24] MEDS: LORazepam 2 MG/ML VIAL IVPUSH (21:47)
[2020-10-24 21:53] LABS: Basophils Percent Auto 0.1 % (0-2); Hematocrit 36.1 % (42-52); Imm Gran Abs Auto 0.08 X10*3/uL (0.00-0.03); Imm Gran Pct Auto 0.8 % (0.0-0.4); Lymphocytes Absolute Auto 0.4 X10*3/uL (1.2-4.9); Lymphocytes Percent Auto 3.8 % (20-40); MANUAL DIFF FLAG SCAN; Mean Corpuscular HGB Conc 30.5 g/dl (31.0-36.0); Mean Corpuscular Hemoglobin 34.7 pg (27.0-33.0); Mean Platelet Volume 9.7 fL (9.4-12.4); Monocytes Absolute Auto 0.3 X10*3/uL (0.1-1.2); Monocytes Percent Auto 3.6 % (2-11); Neutrophils Absolute Auto 8.7 X10*3/uL (2.0-8.3); Neutrophils Percent Auto 91.7 % (45-73); Red Blood Count 3.17 X10*6/uL (4.60-5.80); Red Cell Distribution Width 14.8 % (11.0-16.0); SCAN SMEAR FLAG 1; White Blood Count 9.5 X10*3/uL (4.8-10.8)
--- NOTE | 2020-10-24 21:53 | PC.NURSE ---
brenna attempted to insert taylor and met resistance. provider made aware.
[2020-10-24 21:54] LABS: Mean Corpuscular Volume 113.9 fL (80-98); NRBC Pct Auto 1.2 /100WBC (0.0-0.2)
[2020-10-24 22:00] LABS: Influenza A PCR NEGATIVE (Negative); Influenza B PCR NEGATIVE (Negative); Resp Syncy Virus RNA Qual PCR NEGATIVE (Negative); SARS COV2 PCR INHOUSE NEGATIVE (Negative)
[2020-10-24 22:10] LABS: Platelet Count 57 X10*3/uL (160-400)
[2020-10-24] MEDS: PHENobarbitaL sodium 130 MG/ML VIAL 292 MG IM (22:28)
[2020-10-24 22:33] LABS: Procalcitonin 1.03 ng/mL
[2020-10-24 22:35] LABS: Venous Blood Gas Refer to POC result
[2020-10-24 22:39] LABS: VBG Base Excess -12.1 mmol/L; VBG HCO3 12 mmol/L (22-26); VBG pCO2 26 mmHg; VBG pH 7.29 (7.32-7.43); VBG pO2 95 mmHg
[2020-10-24 22:47] LABS: Reflex Lactate? Lactic Acid Added
[2020-10-24] MEDS: Pantoprazole Sodium 40 MG/10 ML VIAL 80 MG IVPUSH (23:35)
[2020-10-24] MEDS: Magnesium Sulfate/H2O 2 GM/50 ML PIGGYBACK IV (23:35)
[2020-10-25] VITALS (7 sets, daily range): BP systolic 105–156; BP diastolic 63–76; PULSE 85–97; RESP 26–28; TEMP 38; O2SAT 93–94
[2020-10-25 00:28] LABS: Appearance Urine CLOUDY; Color Urine DARK YELLOW; Glucose Urine UA NEG (NEG); Leukocyte Esterase Urine NEG (NEG); Nitrite Urine NEG (NEG); PH 5.5 (5.0-8.0); Specific Gravity - Urine >= 1.030 (1.005-1.025); Urine Blood 3+ (NEG); Urine Ketones 5 MG/DL (NEG); Urine Protein 2+ MG/DL (NEG-TRACE)
[2020-10-25 00:39] LABS: Amorphous Sediment Urine 2+ /LPF; Calcium Oxalate Crystals Urine 1+ /LPF; Renal Epithelial Cells Urine 1+ /LPF; Squamous Epithelial Cell Urine 2+ /LPF; WBC Urine 0-2 /HPF (0-4)
[2020-10-25 00:52] LABS: Alanine Aminotransferase 141 U/L (0-40); Albumin Level 3.2 g/dL (3.5-5.0); Alkaline Phosphatase 175 U/L (39-117); Aspartate Amino Transferase 644 U/L (5-37); Bilirubin Total 4.8 mg/dL (0.0-1.0); Blood Urea Nitrogen 26 mg/dL (9-16); Creatinine Clr Calc Pharmacy 27.3; Estimated Glomerular Filt Rate 21; Glucose Random 156 mg/dL (60-115)
[2020-10-25 00:54] LABS: Troponin-I High Sensitivity 121.6 ng/L (<3.5-35.0); ~Lactic Acid-LAB USE ONLY 5.7 mmol/L (0.5-2.0)
[2020-10-25 00:56] LABS: Amphetamine Screen Urine Not Detected (Not Detect); Barbiturates, Urine Not Detected (Not Detect); Benzodiazepines Screen Urine Not Detected (Not Detect); Cannabinoid Screen Urine Not Detected (Not Detect); Cocaine Screen Urine Not Detected (Not Detect); Opiate Screen Urine Not Detected (Not Detect); Phencyclidine Screen Urine Not Detected (Not Detect)
[2020-10-25] MEDS: PHENobarbitaL sodium 130 MG/ML VIAL 219 MG IM (00:58)
[2020-10-25 01:09] LABS: Anion Gap 21 (12-20); Calcium 6.6 mg/dL (8.4-10.2); Carbon Dioxide 16 mmol/L (22-29); Chloride 98 mmol/L (96-108); Lipase 420 U/L (8-78); Potassium 5.2 mmol/L (3.3-5.1); Sodium 130 mmol/L (135-145)
--- NOTE | 2020-10-25 01:12 | PC.NURSE ---
pt cleaned for small amount of dark stool. pt was not of much assistance in turning, pt is a 2 assist.
--- NOTE | 2020-10-25 01:52 | PC.NURSE ---
provider made aware of the drop in bp and order to hang 1L to go over 1 hour. this make 5th L
[2020-10-25 02:23] LABS: Reflex Lactate? 2 Y
--- NOTE | 2020-10-25 02:46 | PC.NURSE ---
called [facility] and spoke with the rn who is taking this pt. she was in another pt room and will call back.
--- NOTE | 2020-10-25 03:04 | PC.NURSE ---
nurse to nurse report given to Fatuma daley at [facility].
== END 2020-10-25 03:30 | disposition short-term general hospital (02) ==
PROVIDERS: Nurse Practitioner Primary Care; Emergency Provider Student in an Organized Health Care Education/Training Program; PCP Internal Medicine
DX: F10.239 Alcohol dependence with withdrawal, unspecified (principal); E83.42 Hypomagnesemia; E87.2 Acidosis; R74.01 Elevation of levels of liver transaminase levels; K92.2 Gastrointestinal hemorrhage, unspecified; E87.8 Other disorders of electrolyte and fluid balance, not elsewhere classified; I48.91 Unspecified atrial fibrillation; N18.9 Chronic kidney disease, unspecified; Z79.82 Long term (current) use of aspirin; Z79.899 Other long term (current) drug therapy; Z20.822 Contact with and (suspected) exposure to COVID-19
CPT/HCPCS: 0241U; 36415; 70450; 71045; 72125; 74176; 80053; 80307; 81001; 82077; 82272; 82550; 83605; 83690; 83735; 84145; 84484; 85025; 85610; 85730; 86140; 86850; 86900; 86901; 87040; 93005; 96361; 96365; 96366; 96372; 96375; 99285; 99291; 99292; J2060; J2560; J3475